=== PATIENT | female | born 1995 | race Caucasian/White ===

== ENCOUNTER 2017-08-29 12:50 | Emergency (ER) | payer SELFPAY ==
[2017-08-29 12:54] VITALS: BP 122/75
--- NOTE | 2017-08-29 13:40 | DR.CONMALE ---
HPI - Time Seen Time seen: 13:35 - Complaint Chief Complaint Doctors Comments: Patient presents with complaint of constipation for three weeks. Now she has vomiting associated. She has taken otc medication but has not had a BM. Today she had vomiting x 1 Self Treatment fo Chief Complaint: OTC LAXITIVES,,, - Timing Onset of Chief Complaint: 08/07/17 PMH - PMH Past Medical History: No Past Surgical History: Yes Surgical History: Tonsillectomy - Family History History of Family Medical Conditions: No Family Medical History: Hypertension - Social History Does patient currently use any type of tobacco product: No Have you used tobacco products in the last 12 months: No Type of Tobacco Use: None Does any household member use tobacco: No Do you use any recreational Drugs:: No Lives With: Family Lives Where: Home - infectious screening In the last 2 months have you had wt loss of >10#?: NO Have you had fever, night sweats or hemotysis?: No Have you traveled outside the country in the last 6 months?: No Isolation: Standard ROS - Review of Systems Eyes: No Symptoms Reported ENTM: No Symptoms Reported Respiratoy: No Symptoms Reported Cardiovascular: No Symptoms Reported Gastrointestinal/Abdominal: Abdominal Pain, Constipation Genitourinary: No Symptoms Reported Neurological: No Symptoms Reported Musculoskeletal: No Symptoms Reported Integumentary: No Symptoms Reported Hematologic/Lymphatic: No Symptoms Reported Endocrine: No Symptoms Reported Psychiatric: No Symptoms Reported All Other Systems: Reviewed and Negative PE - Vital Signs Vital Signs: Temp Pulse Resp BP Pulse Ox 08/29/17 12:55 98.5 F 84 20 100 12/07/16 13:44 122/75 - General Limitations: No Limitations General Appearance: Alert, In No Apparent Distress - Head Head Exam: Normal Inspection, Atraumatic - Eyes Eye exam: Normal Appearance, PERRL, EOMI - ENT ENT Exam: Normal Exam - Neck Neck Exam: Normal Inspection, Full ROM - Chest Chest Inspection: Normal Inspection - Respiratory Respiratory Exam: Normal Lung Sounds Bilat Respiratory Exam: Bilateral Clear to Auscultation - Cardiovascular Cardiovascular Exam: Regular Rate, Normal Rhythm - Gastrointestinal Abdominal Exam: Normal Inspection, Normal Bowel Sounds Abdominal Tenderness: negative: RUQ, RLQ, LUQ, LLQ, Epigastrium, Suprapubic, Diffuse, Mild, Moderate, Severe, Other - Rectal Rectal: Normal Exam Guaiac: Positive - Extremities Extremities Exam: Normal Inspection, Full ROM - Back Back Exam: Normal Inspection - Neurological Neurological Exam: Alert, Oriented X3, CN II-XII Intact - Psychiatric Psychiatric Exam: Normal Affect - Skin Skin Exam: Warm, Dry, Intact ROR - Labs Reviewed Result Diagrams: 08/29/17 13:49 08/29/17 13:49 Laboratory: WBC 6.7 X10^3/uL (3.6-10.0) 08/29/17 13:49 RBC 5.12 X10^6/uL (3.5-5.4) 08/29/17 13:49 Hgb 13.4 g/dL (12.0-16.0) 08/29/17 13:49 Hct 38.9 % (36.0-47.0) 08/29/17 13:49 MCV 76.1 fL (80.0-100.0) L 08/29/17 13:49 MCH 26.1 pg (27.0-34.0) L 08/29/17 13:49 MCHC 34.3 g/dL (33.0-35.0) 08/29/17 13:49 RDW 13.8 % (11.6-16.5) 08/29/17 13:49 Plt Count 308 X10^3/uL (150.0-450.0) 08/29/17 13:49 MPV 8.2 fL (7.4-11.0) 08/29/17 13:49 Neut % 66.1 % (42.0-75.0) 08/29/17 13:49 Lymph % 25.1 % (21.0-51.0) 08/29/17 13:49 Bradley % 7.6 % (0.0-13.0) 08/29/17 13:49 Eos % 0.6 % (0.9-2.9) L 08/29/17 13:49 Baso % 0.6 % (0.2-1.0) 08/29/17 13:49 Neut # 4.5 x10^3/uL (2.2-4.8) 08/29/17 13:49 Lymph # 1.7 X10^3/uL (1.3-2.9) 08/29/17 13:49 Bradley # 0.5 x10^3/uL (0.3-0.8) 08/29/17 13:49 Eos # 0.0 x10^3/uL (0.0-0.2) 08/29/17 13:49 Baso # 0.0 X10^3/uL (0.0-0.1) 08/29/17 13:49 Absolute Nucleated RBC 0.0 /100WBC 08/29/17 13:49 Sodium 141 mmol/L (136-145) 08/29/17 13:49 Corrected Sodium TNP 08/29/17 13:49 Potassium 4.3 mmol/L (3.5-5.1) 08/29/17 13:49 Chloride 105 mmol/L (98-107) 08/29/17 13:49 Carbon Dioxide 28.4 mmol/L (21-32) 08/29/17 13:49 BUN 8 mg/dL (7-18) 08/29/17 13:49 Creatinine 0.88 mg/dL (0.55-1.02) 08/29/17 13:49 Est GFR (MDRD) Af Amer > 60 (>60) 08/29/17 13:49 Est GFR (MDRD) Non-Af > 60 (>60) 08/29/17 13:49 Glucose 86 mg/dL (65-99) 08/29/17 13:49 Calcium 9.2 mg/dL (8.5-10.1) 08/29/17 13:49 Specimen Type Clean catch urine 08/29/17 15:07 Urine Color Yellow (YELLOW) 08/29/17 15:07 Urine Appearance Hazy (CLEAR) 08/29/17 15:07 Urine pH 7.0 (5.0 - 8.0) 08/29/17 15:07 Ur Specific [place] 1.010 (1.000-1.030) 08/29/17 15:07 Urine Protein Negative (NEGATIVE) 08/29/17 15:07 Urine Glucose (UA) Negative (NEGATIVE) 08/29/17 15:07 Urine Ketones Negative (NEGATIVE) 08/29/17 15:07 Urine Occult Blood Negative (NEGATIVE) 08/29/17 15:07 Urine Nitrite Negative (NEGATIVE) 08/29/17 15:07 Urine Bilirubin Negative (NEGATIVE) 08/29/17 15:07 Urine Urobilinogen Normal (NORMAL) 08/29/17 15:07 Ur Leukocyte Esterase 1+ (NEGATIVE) 08/29/17 15:07 Urine RBC 0-2 /HPF (NEGATIVE) 08/29/17 15:07 Urine WBC 0-2 /HPF (NEGATIVE) 08/29/17 15:07 Ur Squamous Epith Cells Few /HPF (NEGATIVE) 08/29/17 15:07 Urine Bacteria Trace /HPF (NEGATIVE) 08/29/17 15:07 Ur Culture Indicated? No/not indicated 08/29/17 15:07 - XRAY XRAY Interpreted by: Radiologist (CT Abdomen No acute inflammatory process within the abdomen or pelvis given limitations of a noncontrast examination) - Diagnosis Discharge Problem: Constipation Qualifiers: Constipation type: slow transit constipation Qualified Code(s): K59.01 - Slow transit constipation - Discharge Plan Condition: Stable - Follow ups/Referrals Follow ups/Referrals: NFD,None [Primary Care Provider] - 3 days - Instructions
[2017-08-29 13:58] LABS: BASOPHILS % (AUTO) 0.6 % (0.2-1.0); EOSINOPHILS % (AUTO) 0.6 % (0.9-2.9); HEMATOCRIT 38.9 % (36.0-47.0); HEMOGLOBIN 13.4 g/dL (12.0-16.0); LYMPHOCYTES # (AUTO) 1.7 X10^3/uL (1.3-2.9); LYMPHOCYTES % (AUTO) 25.1 % (21.0-51.0); MEAN CORPUSCULAR HEMOGLOBIN 26.1 pg (27.0-34.0); MEAN CORPUSCULAR HGB CONC 34.3 g/dL (33.0-35.0); MEAN CORPUSCULAR VOLUME 76.1 fL (80.0-100.0); MEAN PLATELET VOLUME 8.2 fL (7.4-11.0); MONOCYTES # (AUTO) 0.5 x10^3/uL (0.3-0.8); MONOCYTES % (AUTO) 7.6 % (0.0-13.0); NEUTROPHILS # (AUTO) 4.5 x10^3/uL (2.2-4.8); NEUTROPHILS % (AUTO) 66.1 % (42.0-75.0); PLATELET COUNT 308 X10^3/uL (150.0-450.0); RED BLOOD COUNT 5.12 X10^6/uL (3.5-5.4); RED CELL DISTRIBUTION WIDTH 13.8 % (11.6-16.5); WHITE BLOOD COUNT 6.7 X10^3/uL (3.6-10.0)
[2017-08-29 14:09] LABS: BLOOD UREA NITROGEN 8 mg/dL (7-18); CALCIUM 9.2 mg/dL (8.5-10.1); CARBON DIOXIDE 28.4 mmol/L (21-32); CHLORIDE 105 mmol/L (98-107); CREATININE 0.88 mg/dL (0.55-1.02); SODIUM 141 mmol/L (136-145); eGFR BLACK RACES > 60 (>60); eGFR NON BLACK RACES > 60 (>60)
[2017-08-29 15:28] LABS: BILIRUBIN,URINE NEGATIVE (NEGATIVE); BLOOD/HEMOGLOBIN,URINE NEGATIVE (NEGATIVE); GLUCOSE, URINE NEGATIVE (NEGATIVE); KETONES,URINE NEGATIVE (NEGATIVE); LEUKOCYTE ESTERASE ,URINE 1+ (NEGATIVE); NITRITES,URINE NEGATIVE (NEGATIVE); PROTEIN,URINE NEGATIVE (NEGATIVE); UROBILINOGEN,URINE NORMAL (NORMAL)
[2017-08-29 15:35] LABS: APPEARANCE,URINE HAZY (CLEAR); COLOR,URINE YELLOW (YELLOW); RBC,URINE 0-2 /HPF (NEGATIVE)
[2017-08-29 15:36] LABS: BACTERIA,URINE TRACE /HPF (NEGATIVE); SQUAMOUS EPITHELIAL CELL,UR FEW /HPF (NEGATIVE)
--- NOTE | 2017-08-29 16:29 | RAD ---
HISTORY: Chest and abdominal pain. Acute abdominal series. Findings: The trachea is midline. The cardiac silhouette is unremarkable. The lungs are clear without focal i nfiltrate or effusion. The bony thorax demonstrates biconvex scoliosis. Flat plate and upright evaluation of the abdomen demonstrates a nonspecific and nonobstructive bowel gas pattern. No free peritoneal air is seen. No pathological soft tissue abdominal mass effect or foc al calcification can be observed. The bony structures are grossly intact. IMPRESSION: 1. No acute cardiopulmonary disease. 2. No evidence for acute abdominal pathology. 3. Moderate quantity of colonic stool observed. Reported By:
--- NOTE | 2017-08-29 17:56 | CT ---
CT abdomen and pelvis without contrast Indication: Abdominal pain for 3 weeks Comparison: None available Technique: Multiple axial images of the abdomen and pelvis were obtained from the lung bases to the pubic symphy sis without the administration of IV contrast. Findings: The lung bases are clear. No focal hepatic lesion is identified given limitations of a noncontrast ex amination. The gallbladder, bile ducts, spleen, pancreas and adrenal glands are normal. Neither kidne y demonstrates evidence of mass, nephrolithiasis or hydronephrosis. Upper GI tract is without evidenc e of mass or obstruction. Urinary bladder is normal. No pelvic or adnexal mass. Small cyst is suspect ed within the right ovary. The rectum and colon demonstrate mild increased fecal material. No bowel w all thickening mass or obstruction. The appendix is normal. The abdominal aorta is normal in caliber. Review of bone windows demonstrates no acute osseous abnormality. Impression: 1.No acute inflammatory process within the abdomen or pelvis given limitations of a noncontrast exami [employer]. 2. Mild constipation. Reported By:
== END 2017-08-29 18:08 | disposition home or self-care (01) ==
LOC: ER 13:21
DX: K59.01 Slow transit constipation (principal); R10.84 Generalized abdominal pain
CPT/HCPCS: 36415; 74022; 74176; 80048; 81001; 85025; 99282

== ENCOUNTER 2018-04-01 12:49 | Emergency (ER) | payer SELFPAY ==
[2018-04-01 12:49] VITALS: BP 122/75
[2018-04-01 12:57] VITALS: BMI 28.3
--- NOTE | 2018-04-01 15:06 | DR.URIAD ---
HPI - Time Seen Time seen: 15:00 - PCP Primary Care Physician: NFD - Complaint Chief Complaint:: PT C/O CCC, AND FEVER FOR THE PAST WEEK ..BR Self Treatment fo Chief Complaint: TYLENOL , - Reviewed Nurses Notes Reviewed: Yes - Source History Provided: Patient - Mode of Arrival Mode of Arrival: Ambulatory - Timing Onset of Chief Complaint: 03/25/18 - Quality Shortness of Breath: Mild PMH - PMH Past Medical History: No Past Surgical History: Yes Surgical History: Tonsillectomy - Family History History of Family Medical Conditions: No Family Medical History: Hypertension - Social History Does patient currently use any type of tobacco product: No Have you used tobacco products in the last 12 months: No Type of Tobacco Use: None Does any household member use tobacco: No Alcohol Use: None Do you use any recreational Drugs:: No Lives With: Family Lives Where: Home - infectious screening In the last 2 months have you had wt loss of >10#?: NO Have you had fever, night sweats or hemotysis?: No Have you traveled outside the country in the last 6 months?: No Isolation: Standard PE - Vital Signs Vitals: Temperature 98.0 F Pulse Rate 112 Respiratory Rate 20 Blood Pressure 122/75 O2 Sat by Pulse Oximetry 97 - Discharge Plan Disposition: 01 HOME, SELF-CARE Condition: Stable - Follow ups/Referrals Follow ups/Referrals: Jovon BELL [Primary Care Provider] - 3 days - Instructions
== END 2018-04-01 15:02 | disposition left against medical advice (07) ==
LOC: ER 13:08
DX: R50.9 Fever, unspecified (principal)
CPT/HCPCS: 99281